=== PATIENT | female | born 1955 | race Hispanic/Latino ===

== ENCOUNTER → 2017-12-30 | Outpatient (CLI) | payer OTHER | END | disposition home or self-care (01) | LOC: RAH 10:45 | PROVIDERS: ATTEND Internal Medicine | DX: R10.13 Epigastric pain (principal); R11.2 Nausea with vomiting, unspecified; R14.0 Abdominal distension (gaseous) | CPT/HCPCS: 78264; A9541 ==

== ENCOUNTER → 2023-04-29 | Outpatient (CLI) | payer MEDICARE ==
[~2023-04-29] MED LIST: IOHEXOL-350 75 ML VIAL IV ONE
== END | disposition home or self-care (01) ==
LOC: RAH 11:10
PROVIDERS: ATTEND Nurse Practitioner Family
DX: K42.9 Umbilical hernia without obstruction or gangrene (principal); R19.09 Other intra-abdominal and pelvic swelling, mass and lump; M47.815 Spondylosis without myelopathy or radiculopathy, thoracolumbar region; Z90.49 Acquired absence of other specified parts of digestive tract; Z98.890 Other specified postprocedural states
CPT/HCPCS: 74178; Q9967

== ENCOUNTER 2023-11-15 07:45 | Day surgery (SDC) | payer MEDICARE ==
[2023-11-10 09:50] VITALS: BP 132/74; PULSE 58; RESP 18
[2023-11-10 09:52] LABS: BASOPHILS # (AUTO) 0.03 K/uL (0.00-0.20); BASOPHILS % (AUTO) 0.6 % (0.0-5.0); EOSINOPHILS # (AUTO) 0.08 K/uL (0.00-0.70); EOSINOPHILS % (AUTO) 1.6 % (0.0-8.0); HEMATOCRIT 34.6 % (36-48); IMMATURE GRANULOCYTE ABSOLUTE 0.02 K/uL (0-1); LYMPHOCYTES # (AUTO) 1.3 K/uL (1.0-4.8); LYMPHOCYTES % (AUTO) 27.2 % (21.0-51.0); MEAN CORPUSCULAR HEMOGLOBIN 29.8 pg (27.0-33.0); MEAN CORPUSCULAR HGB CONC 32.9 g/dL (32.0-36.0); MEAN CORPUSCULAR VOLUME 90.3 fL (79-99); MONOCYTES # (AUTO) 0.7 K/uL (0.1-1.0); MONOCYTES % (AUTO) 14.2 % (3.0-13.0); NEUTROPHILS # (AUTO) 2.8 K/uL (1.8-7.7); PLATELET COUNT (AUTO) 364 K/uL (130-400); RED BLOOD CELL COUNT(AUTO) 3.83 MIL/uL (4.00-5.50); RED CELL DISTRIBUTION WIDTH 15.9 % (11.0-15.5); WHITE BLOOD COUNT (AUTO) 4.9 K/uL (4.8-10.8)
[2023-11-10 09:58] LABS: POTASSIUM 4.5 mmol/L (3.5-5.1)
[2023-11-10 10:52] LABS: INR <= 0.93 (0.85-1.15); PROTHROMBIN TIME 10.3 SEC (9.6-11.6)
[2023-11-10 10:53] LABS: PARTIAL THROMBOPLASTIN TIME 26.5 SEC (26.3-35.5)
[~2023-11-15] VITALS: Ht 154.9 cm; Wt 48.8 kg
[2023-11-15] VITALS (17 sets, daily range): BP systolic 118–151; BP diastolic 56–85; PULSE 59–77; RESP 14–19
[~2023-11-15 07:45] MED LIST changes: +ATEN50TA PO; +ATOR10 PO; +BACI1CAP10 PO; +DILT120C12 PO; -IOHEXOL-350 75 ML VIAL IV ONE; +LISI20TA24 PO; +LORA0.5T83 PO; +MILK150C2 PO; +OMEP40CA21 PO; +SERT-439 PO
[2023-11-15] MEDS: CEFAZOLIN SODIUM 2 GM VIAL ONE (09:20)
[2023-11-15] MEDS: LACTATED RINGERS 1000ML 1,000 ML IV ONE (09:20)
[2023-11-15] MEDS ORDERED: BUPIVACAINE/PF 0.5% 30ML VIAL ONE (10:21)
[2023-11-15] MEDS ORDERED: BUPIVACAINE/PF 0.25% 30ML VIAL IJ ONE (10:26)
[2023-11-15] MEDS ORDERED: MIDAZOLAM HCL 1 MG/ML 2ML VIAL ONE (11:04)
[2023-11-15] MEDS ORDERED: FENTANYL CITRATE PF 50 MCG/1 ML 2ML VIAL ONE (11:04)
[2023-11-15] MEDS ORDERED: SUCCINYLCHOLINE CHLORIDE 20 MG/ML 10 ML VIAL ONE (11:04)
[2023-11-15] MEDS ORDERED: PROPOFOL 10 MG/ML 20ML VIAL IV ONE (11:04)
[2023-11-15] MEDS ORDERED: ROCURONIUM BROMIDE 10MG/1ML 5ML VL ONE (11:19)
[2023-11-15] MEDS ORDERED: GLYCOPYRROLATE 0.2 MG/ML 5 ML VIAL ONE (11:21)
[2023-11-15] MEDS ORDERED: EPHEDRINE SULFATE 50 MG/ML AMPULE ONE (11:25)
[2023-11-15] MEDS ORDERED: TRAM50TA4 PO (11:50)
[2023-11-15] MEDS ORDERED: METH-662 PO (11:50)
[2023-11-15] MEDS ORDERED: DOCU-116 PO (11:50)
[2023-11-15] MEDS ORDERED: GABA-529 PO (11:50)
[2023-11-15] MEDS: ONDANSETRON 4MG INJ ONE (12:54)
[2023-11-15] MEDS: MEPERIDINE-PF 25 MG/ML SYG ONE ×2 (12:54→12:55)
== END 2023-11-15 13:50 | disposition home or self-care (01) ==
LOC: DAH 07:45
PROVIDERS: ATTEND Surgery
DX: K43.0 Incisional hernia with obstruction, without gangrene (principal); I10 Essential (primary) hypertension; E78.5 Hyperlipidemia, unspecified; K21.9 Gastro-esophageal reflux disease without esophagitis; F41.9 Anxiety disorder, unspecified; F17.200 Nicotine dependence, unspecified, uncomplicated; Z79.01 Long term (current) use of anticoagulants; Z79.899 Other long term (current) drug therapy
CPT/HCPCS: 80048; 85025; 85610; 85730; 36415; 93005; 49614; 64488; A6260; A4663; J7030 ×2; J7120; J3010; J0330; J3490 ×3; J2250; J2704; J2405; J2175 ×2; J0690; A4649 ×2; A4930 ×2; A4215; A4223; A4222; A4221; A4600; G0168; J0665

== ENCOUNTER 2025-04-10 23:03 | Observation (INO) | payer MEDICARE ==
[~2025-04-10] VITALS: Ht 152.4 cm; Wt 51.3 kg
[~2025-04-10 23:03] MED LIST changes: +DOCU-116 PO; +GABA-529 PO; +METH-662 PO; +TRAM50TA4 PO
--- NOTE | 2025-04-10 23:19 | ERN ---
ED Note History of Present Illness Stated Complaint: C/O CP Chief Complaint: Chest Pain Time Seen by MD: 23:15 Dictation: This is a 69-year-old female who presented to the emergency room with complaints of epigastric pain and chest pain. Which started 30 minutes prior to the presentation. Patient states that she always has a heartburn and she usually takes omeprazole in the morning. After she had a hamburger Norma and a piece of toast she began experiencing heartburn initially pain in the xiphoid area eventually all throughout the mid chest pain to the throat. She also stated that it radiated to her left arm and she started panicking and woke her daughter up. No diaphoresis no presyncope or syncope. No palpitations. Patient's daughter also reports that patient has severe anxiety. Temperature 98.3 pulse 77 respirations 20 blood pressure 166/74 with a pulse oximetry of 99% on room air Her chronic medical problems include history of hypertension, tachycardia. She has a active tobacco smoker Allergies: Coded Allergies: No Known Drug Allergies (Unverified Allergy, Unknown, 11/10/23) Home Meds Active Scripts Methocarbamol (Robaxin) 750 Mg Tab, 500 MG PO TID, #12 TAB 0 Refills Prov:MAL TINSLEY MD 11/15/23 Gabapentin (Gabapentin) 100 Mg Capsule, 100 MG PO TID, #15 CAP 0 Refills Prov:MAL TINSLEY MD 11/15/23 Docusate Sodium (Colace) 100 Mg Capsule, 100 MG PO BID, #30 CAP 0 Refills Prov:MAL TINSLEY MD 11/15/23 Tramadol Hcl (Tramadol HCl) 50 Mg Tablet, 50 MG PO Q6HPRN PRN for PAIN, #28 TAB 0 Refills Prov:MAL TINSLEY MD 11/15/23 Reported Medications Bacillus Coagulans/Inulin (Probiotic Formula Capsule) 1 Billion Cell-250 Mg Capsule, 1 EACH PO DAILY, CAP 11/10/23 Lorazepam (Ativan) 0.5 Mg Tablet, 0.5 MG PO AD PRN for ANXIETY, TAB 11/10/23 Atenolol (Atenolol) 50 Mg Tablet, 50 MG PO DAILY, TAB 11/10/23 Omeprazole (Omeprazole) 40 Mg Capsule.dr, 40 MG PO DAILY, CAP 11/10/23 Atorvastatin Calcium (LIPITOR) 20 Mg Tab, 20 MG PO HS, TAB 11/10/23 Sertraline HCl (Sertraline HCl) 50 Mg Tablet, 50 MG PO BID, TAB 11/10/23 Diltiazem HCl (Diltiazem ER) 120 Mg Cap.er.12h, 120 MG PO BID, CAPSULE. 11/10/23 Lisinopril (Lisinopril) 20 Mg Tablet, 20 MG PO BID, TAB 11/10/23 Milk Thistle (Milk Thistle) 150 Mg Capsule, 150 MG PO DAILY, CAP 11/10/23 Past Medical History Past Medical History: Anxiety, GERD, Hypertension, Other Additional Past Medical Hx: HX OF TACHYCARDIA Surgical History: Unknown Family History: Negative Social History: Smokers History: Not Applicable RN Note Reviewed/Agreed w/PFSH: Yes Review of System Dictation Constitutional: Negative for fever,chills, and weight loss Eyes: Negative for injury, pain,redness, and discharge ENT: Negative for injury,pain or swelling Cardiovascular: Positive for chest pain, palpitations, and edema Respiratory: Negative for shortness of breath, cough, and wheezing, Abdomen/GI: Negative for abdominal pain, nausea, vomiting, diarrhea, and constipation positive for heartburn and indigestion Back: Negative for injury and pain : Negative for injury, bleeding and discharge MS/Extremity: Negative for injury and deformity Skin: Negative for rash, and discoloration Neuro: Negative for headache, weakness, numbness, tingling, and seizure Psych: Negative for suicide ideation, homicidal ideation, and hallucinations Initial Vital Sign VS Vital Signs Date Time Temp Pulse Resp B/P (MAP) Pulse Ox O2 Delivery O2 Flow Rate FiO2 04/10/25 23:06 98.2 77 20 166/74 99 Room Air 04/10/25 23:30 0 21 Physical Exam Dictation General: awake, alert, NAD chronically ill-appearing emaciated female Head/Face: Normocephalic, atraumatic Eyes: PERRL, EOMI, vision at baseline ENT: oral cavity clear, TMs clear, no signs of infection Neck: Trachea midline, supple, no nuchal rigidity Cardiovascular: RRR, normal S1/S2, No MRGs, no JVD tenderness in the xiphoid area Respiratory: CTAB, no respiratory distress, No rales or wheezes Abdomen: Soft, non-tender, non-distended, normal bowel sounds, no guarding or rebound. Skin: Warm, dry, normal turgor, no rash MS/Extremity: Pulses equal, no cyanosis, neurovascular intact, FROM Neuro: COAx4, GCS 15, strength 5/5, CN 2-12 intact, normal cerebellar exam, normal gait, Psych: Normal behavior, mood, and affect normal Extremities-trace edema without any palpable cords, Homans sign is negative Results (Laboratory/Radiology) Laboratory/Radiology Laboratory Tests Test 04/10/25 23:17 White Blood Count 7.8 K/uL (4.8-10.8) Red Blood Count 3.52 MIL/uL (4.00-5.50) L Hemoglobin 10.2 g/dL (12.0-16.0) L Hematocrit 31.6 % (36-48) L Mean Corpuscular Volume 89.8 fL (79-99) Mean Corpuscular Hemoglobin 29.0 pg (27.0-33.0) Mean Corpuscular Hemoglobin Concent 32.3 g/dL (32.0-36.0) Red Cell Distribution Width 16.2 % (11.0-15.5) H Platelet Count 313 K/uL (130-400) Mean Platelet Volume 9.1 fL (7.5-10.5) Immature Granulocyte % (Auto) 0.3 % (0-1) Neutrophils (%) (Auto) 58.1 % (40.0-77.0) Lymphocytes (%) (Auto) 28.1 % (21.0-51.0) Monocytes (%) (Auto) 10.9 % (3.0-13.0) Eosinophils (%) (Auto) 2.2 % (0.0-8.0) Basophils (%) (Auto) 0.4 % (0.0-5.0) Neutrophils # (Auto) 4.6 K/uL (1.8-7.7) Lymphocytes # (Auto) 2.2 K/uL (1.0-4.8) Monocytes # (Auto) 0.9 K/uL (0.1-1.0) Eosinophils # (Auto) 0.17 K/uL (0.00-0.70) Basophils # (Auto) 0.03 K/uL (0.00-0.20) Absolute Immature Granulocyte (auto 0.02 K/uL (0-1) Nucleated Red Blood Cells 0.0 % (0.0-0.19) Sodium Level 134 mmol/L (136-145) L Potassium Level 3.6 mmol/L (3.5-5.1) Chloride Level 97 mmol/L (101-111) L Carbon Dioxide Level 26 mmol/L (21-32) Blood Urea Nitrogen 12 mg/dL (7-18) Creatinine 1.3 mg/dL (0.5-1.0) H Glomerular Filtration Rate Calc 44 mL/min (>90) Random Glucose 115 mg/dL (70-105) H Total Calcium 8.5 mg/dL (8.5-10.1) Total Creatine Kinase 77 U/L (21-232) # Troponin I High Sensitivity 10.0 ng/L (4-50) Labs Reviewed?: Yes EKG Comment: Twelve lead EKG done on 04/10/2025 at 11:05 p.m. showed a heart rate of 72, DC interval 124, QRS duration 86, QT/QTC 387/424 Impression normal sinus rhythm with nonspecific STT wave changes no acute ST-T elevations or deep ST depressions noted. Probable left atrial enlargement. EKG rhythm strip shows a normal sinus rhythm with no acute STT wave changes. Interpreted by ER MD Dr. Smith ED Course ED Course Orders Procedure Category Date Status Time Vital Signs Per CPOE 04/10/25 Transmitted Routine 23:11 Chest 1vw RAD 04/10/25 Resulted 23:11 12 Lead Ekg Tracing- EKG 04/10/25 Logged Technical 23:11 Oxygen By Nc/Pulse Ox CPOE 04/10/25 Transmitted 23:11 Maintain Iv CPOE 04/10/25 Transmitted 23:11 Iv Insertion CPOE 04/10/25 Transmitted 23:11 Cardiac Monitoring CPOE 04/10/25 Transmitted 23:11 Pulse Oximetry With CPOE 04/10/25 Transmitted Vs And Prn 23:11 Cbc With Differential LAB 04/10/25 Complete 23:11 Activity: Br W/Brp CPOE 04/10/25 Transmitted With Assist 23:11 Urinalysis Profile LAB 04/10/25 In Process 23:11 Basic Metabolic Panel LAB 04/10/25 Complete 23:11 Cardiac Panel LAB 04/10/25 Complete 23:17 Ondansetron 4mg Inj PHA 04/10/25 Complete (Zofran 4mg Inj) 23:30 Morphine 4mg Syg PHA 04/10/25 Complete (Morphine 4mg Syg) 23:45 Ketorolac PHA 04/11/25 Complete Tromethamine 15mg/Ml 01:00 Nitroglycerin 0.4mg PHA 04/11/25 In Process Sl Tab (Nitrostat) 01:00 Lidocaine Hcl 2% PHA 04/11/25 Complete Viscous (Lidocaine Hcl 01:00 Mag/Alum/Simeth 30ml PHA 04/11/25 Complete (Maalox Plus 30ml) 01:00 Famotidine 20mg Tab PHA 04/11/25 Complete (Pepcid 20mg Tab) 01:00 Dicyclomine Hcl PHA 04/11/25 Complete (Bentyl 10mg/5ml 01:00 Edm Admit Bridge Order ADM 04/11/25 Verified 02:27 Current Medications Medications (Trade) Dose Ordered Sig/Aden Route PRN Reason Start Time Stop Time Status Last Admin Dose Admin Al Hydroxide/Mg Hydroxide (MAALox PLUS 30ML) 30 ml ONCE ONCE PO 04/11/25 01:00 04/11/25 01:01 DC 04/11/25 01:17 Dicyclomine HCl (Bentyl 10mg/5ml Syrup) 10 mg ONCE ONCE PO 04/11/25 01:00 04/11/25 01:01 DC 04/11/25 01:17 Famotidine (Pepcid 20mg Tab) 20 mg ONCE ONCE PO 04/11/25 01:00 04/11/25 01:01 DC 04/11/25 01:16 Ketorolac Tromethamine (toRADol) 15 mg ONCE ONCE IV 04/11/25 01:00 04/11/25 01:01 DC 04/11/25 00:56 Lidocaine HCl (Lidocaine HCl 2% Viscous) 10 ml ONCE ONCE PO 04/11/25 01:00 04/11/25 01:01 DC 04/11/25 01:17 Morphine Sulfate (morPHINE 4MG SYG) 2 mg ONCE ONCE IVP 04/10/25 23:45 04/10/25 23:46 DC 04/10/25 23:42 Nitroglycerin (Nitrostat) 0.4 mg AD PRN SL CHEST PAIN 04/11/25 01:00 05/11/25 00:59 Ondansetron HCl (zoFRAN 4MG INJ) 4 mg ONCE ONCE IVP 04/10/25 23:30 04/10/25 23:33 DC 04/10/25 23:42 Vital Signs Date Time Temp Pulse Resp B/P (MAP) Pulse Ox O2 Delivery O2 Flow Rate FiO2 04/11/25 00:20 72 18 115/48 100 Room Air* 0 21 04/10/25 23:30 97.9 74 22 153/70 100 Room Air* 0 21 04/10/25 23:06 98.2 77 20 166/74 99 Room Air We will perform diagnostic labs, imaging and administer medications according to the patient's complaint. Once the results are available, will review and pe rsonally interpreted the labs to rule out any acute life-threatening emergency the trach require immediate intervention and treatment. I will then re-evaluate the patient after treatment and diagnostic exams have return to determine whether the patient requires any further testing, can safely be discharged home or need further admission to hospital for additional treatment and evaluation. 2:30 a.m. patient accepted by Denis Maldonado mid-level provider for [facility] hospitalist group for admission and further management of the chest pain and unstable angina HEART Score Response (Comments) Value History: Low suspicion (0) 0 EKG: Normal 0 Age: > 65yrs (+2) 2 Risk Factors: 1-2 risk factors (+1) 1 Initial Troponin: Normal limit (0) 0 HEART Score Risk: Low Risk for MACE (1-3) Total 3 Medical Decision Making MDM Differential diagnosis: Esophagitis, gastroesophageal reflux disease, hiatal hernia, gastritis, pericarditis, costochondritis, pleurisy, angina This is a 69-year-old female who presented to the emergency room with complaints of epigastric pain and chest pain. Which started 30 minutes prior to the presentation. Patient states that she always has a heartburn and she usually takes omeprazole in the morning. After she had a hamburger Norma and a piece of toast she began experiencing heartburn initially pain in the xiphoid area eventually all throughout the mid chest pain to the throat. She also stated that it radiated to her left arm and she started panicking and woke her daughter up. No diaphoresis no presyncope or syncope. No palpitations. Patient's daughter also reports that patient has severe anxiety. Temperature 98.3 pulse 77 respirations 20 blood pressure 166/74 with a pulse oximetry of 99% on room air Her chronic medical problems include history of hypertension, tachycardia. She has a active tobacco smoker 12:00 a.m. labs reviewed CBC showed a white count of 7.8 hemoglobin 10.2 shane telets 313. BNP 7 is significant for a sodium of 134 chloride 97 BUN and creatinine are 12 and 1.3. Troponins 10 Chest x-ray hyperinflation with COPD changes. I updated the patient on the available workup so far and lab results and discussed the possibilities. We will give additional pain medicine and GI cocktail and reassess the response 1:00 a.m. less tearful than when she came in. I explained to the patient and her daughter that this maybe inflammation near the xiphoid process however hiatal hernia or gastroesophageal reflux disease his definitely a possibility. The fact that patient has been taking omeprazole daily makes me wonder if this is presentation of angina with her history of smoking hypertension and being postmenopausal woman. I shared my concerns with the patient and daughter and recommended that she should be admitted for chest pain workup and they are agreeable Rationale: Tests considered and ordered secondary to shared decision making include: labs, ECG and radiology Previous outside records reviewed: Old ER visits. Risk of complication and/or morbidity or mortality of patient management: None Medications-Per medication reconciliation Need for hospitalization: Patient does meet criteria for hospitalization. Need for emergency major/minor surgery: No There are no social concerns with this patient. Prescription drug management Prescriptions will include symptomatic care Patient's prior external medical records from other ER visits were reviewed by me as indicated. Prior testing and results from previous visits were reviewed. Prior tests were taken into account with medical decision making and resource utilization, independent historian/historians were used to obtain complete medical history. I independently interpreted the test that were performed, results were reviewed by me and considered findings on radiology if ordered. Medical management and examination interpretation discussions were had by me with other qualified healthcare professionals as indicated for the patient's care. Problem List Problem List: (1) Unstable angina (2) Gastroesophageal reflux disease (3) Hypertension (4) Tobacco abuse DX & DISP Disposition: Inpatient Decision to Admit Time: 01:34 Departure Impression: Primary Impression: Unstable angina Additional Impressions: Gastroesophageal reflux disease, Hypertension, Tobacco abuse Condition: Stable Additional Instructions: Patient was informed of all the diagnostic labs and procedures conducted in the emergency room today and demonstrated understanding of the results. I personally reviewed and interpreted all the diagnostic exams performed in the ER today. The patient will be admitted to the hospital for further treatment and evaluation. Disposition-admit to facility Condition-stable/guarded Course-uncertain at this time Pain status-decreased Assessment-exam unchanged Admission Certification- I certify that the patients status is appropriate and is based on my best clinical judgment and the patient's condition as documented in the medical records Referrals: JONATHAN TAVERAS (PCP) BRITTNY SMITH MD Apr 10, 2025 23:19
[2025-04-10 23:28] LABS: IMMATURE GRANULOCYTE ABSOLUTE 0.02 K/uL (0-1); NUCLEATED RED BLOOD CELLS 0.0 % (0.0-0.19); PLATELET COUNT (AUTO) 313 K/uL (130-400); RED BLOOD CELL COUNT(AUTO) 3.52 MIL/uL (4.00-5.50); RED CELL DISTRIBUTION WIDTH 16.2 % (11.0-15.5); WHITE BLOOD COUNT (AUTO) 7.8 K/uL (4.8-10.8)
[2025-04-10 23:42] LABS: CREATININE 1.3 mg/dL (0.5-1.0); GLOMERULAR FILTR. RATE CALC 44.0 mL/min (>90); GLUCOSE,RANDOM 115.0 mg/dL (70-105); SODIUM SERUM 134.0 mmol/L (136-145); UREA NITROGEN, BLOOD 12.0 mg/dL (7-18)
[2025-04-10 23:50] LABS: CREATINE KINASE, TOTAL 77.0 U/L (21-232)
[2025-04-11] VITALS (10 sets, daily range): BP systolic 96–142; BP diastolic 49–63; PULSE 59–93; RESP 16–20; TEMP 97.5–98.4; O2SAT 97–98
--- NOTE | 2025-04-11 00:43 | HMCIMG ---
EXAM: CR Chest, 1 view CLINICAL HISTORY: Chest pain. COMPARISON: None provided. FINDINGS: The lungs show no infiltrates or other acute findings. No pleural effusion or pneumothorax. The cardiomediastinal silhouette is within normal limits. No acute osseous abnormality. IMPRESSION: No acute cardiopulmonary process is evident. /[place]
[2025-04-11] MEDS ORDERED: NITROGLYCERIN 0.4 MG SL TAB SL PRN ×2 (01:00→03:30)
[2025-04-11] MEDS: FAMOTIDINE 20MG TAB PO ONE (01:16)
[2025-04-11] MEDS: LIDOCAINE HCL 2% VISCOUS 15 ML UDCUP PO ONE (01:17)
[2025-04-11] MEDS: MAG/ALUM/SIMETH 30 ML UDCUP PO ONE (01:17)
[2025-04-11] MEDS: DICYCLOMINE HCL 10 MG/5 ML ML PO ONE (01:17)
--- NOTE | 2025-04-11 02:36 | HP ---
History of Present Illness Reason for Visit: chest pain History of Present Illness Ms. Pressley is a 69-year-old female that was seen and examined today on 04/11/2025. Patient is a good historian of personal health. Patient's daughter, Sandra calzada is at bedside. Patient reports that she came to the emergency department with a chief complaint of abdominal pain. Onset was 04/10/2025 at 10:30 p.m.. Location is epigastric. Duration is on and off. Character is described as burning and pressure that traveled from the epigastric region to bilateral chest. Symptoms are aggravated with eating. Symptoms are not alleviated with the omeprazole. Patient reports associated chest pain. Today in the emergency department CBC unremarkable, creatinine 1.3, urinalysis has been collected or sent to lab, chest x-ray is unremarkable, 1st troponin is negative. Emergency room physician recommended patient be admitted with a diagnosis of chest pain. Past Medical History Patient History: Alzheimer's disease FATHER, , Age: 93 Carcinomas FATHER, , Age: 93 Cardiovascular disease MOTHER Diabetes mellitus MOTHER Hypertension MOTHER FATHER, , Age: 93 ADDITIONAL PAST MEDICAL HISTORY: [Hypertension, tachycardia, anxiety, GERD] SOCIAL HISTORY: [Patient smokes five cigarettes daily. Patient denies alcohol use. Patient smokes marijuana daily. Patient denies any other drug use. Patient is typically independent of all her ADLs. Patient denies difficulty paying her bills.] SURGICAL HISTORY: [Tonsillectomy, hernia repair x4, cholecystectomy] Review of Systems General: No Fever, No Chills, No Night Sweats, No Fatigue, No Malaise, No Appetite, No Other HEENT: No Head Aches, No Visual Changes, No Eye Pain, No Ear Pain, No Dysphasia, No Sinus Congestion, No Post Nasal Drip, No Sore Throat, No Other Pulmonary: No Dyspnea, No Cough, No Pleuritic Chest Pain, No Other Cardiovascular: Chest Pain; No: Palpitations, Orthopnea, Paroxysmal Noc. Dyspnea, Edema, Lt Headedness, Other Gastrointestinal: Abdominal Pain; No: Nausea, Vomiting, Diarrhea, Constipation, Melena, Hematochezia, Other Genitourinary: No Dysuria, No Frequency, No Incontinence, No Hematuria, No Retention, No Other Musculoskeletal: No: other, neck pain, shoulder pain, arm pain, back pain, hand pain, leg pain, foot pain Skin: No Urticaria, No Rash, No Other Neurological: No: Weakness, Numbness, Incoordination, Change in speech, Confusion, Seizures, Other Allergies: Coded Allergies: No Known Drug Allergies (Unverified Allergy, Unknown, 11/10/23) Scheduled Atenolol (Atenolol), 50 MG PO DAILY, (Reported) Atorvastatin Calcium (Lipitor), 20 MG PO HS, (Reported) Bacillus Coagulans/Inulin (Probiotic Formula Capsule), 1 EACH PO DAILY, (Reported) Diltiazem HCl (Diltiazem ER), 120 MG PO BID, (Reported) Docusate Sodium (Colace), 100 MG PO BID Gabapentin (Gabapentin), 100 MG PO TID Lisinopril (Lisinopril), 20 MG PO BID, (Reported) Methocarbamol (Robaxin), 500 MG PO TID Milk Thistle (Milk Thistle), 150 MG PO DAILY, (Reported) Omeprazole (Omeprazole), 40 MG PO DAILY, (Reported) Sertraline HCl (Sertraline HCl), 50 MG PO BID, (Reported) Scheduled PRN Lorazepam (Ativan), 0.5 MG PO AD PRN for ANXIETY, (Reported) Tramadol Hcl (Tramadol HCl), 50 MG PO Q6HPRN PRN for PAIN Exam Vital Signs Vital Signs Date Time Temp Pulse Resp B/P (MAP) Pulse Ox O2 Delivery O2 Flow Rate FiO2 04/11/25 00:20 72 18 115/48 100 Room Air* 0 21 04/10/25 23:30 97.9 General Appearance: Alert, Oriented X3, Cooperative HEENT: Atraumatic, PERRLA, EOMI, Mucous membr. moist/pink Respiratory: Clear to auscultation, Normal air movement, NL respiratory effort Cardiovascular: Regular rate, Regular rhythm, Normal S1, Normal S2 Abdominal: Normal bowel sounds, Soft, No tenderness Extremities: No clubbing, No cyanosis, No edema Skin: No significant lesion Neuro: Strength at 5/5 X4 ext, Sensation intact, Cranial nerves 3-12 NL Psych/Mental Status: Mental status NL, Mood NL, Thoughts/Content NL Assessment/Plan ASSESSMENT: [ Acute kidney injury, POA Chest pain, POA Hypertension GERD Anxiety] PLAN: [ Admit patient to medical floor as inpatient status. Place patient on telemetry monitoring Lactated Ringer's at 75 mL/HR Calculate FENA Check urine sodium, creatinine, osmolality Avoid nephrotoxic agents when possible Renally dose all medications when possible Consider consulting Nephrology service if any worsening renal function or evidence of ATN. Monitor patient's labs. Weight patient daily. Monitor intake and output. Administer aspirin 162 mg by mouth times 1 dose Continue aspirin 81 mg by mouth once daily Nitroglycerin sublingual 0.4 mg as needed for chest pain every 5 minutes, max 3 doses, hold for systolic blood pressure less than 100 mmHg. Trend troponin every 6 hours x 3 sets Supplemental oxygen to maintain O2 saturation greater than 92% Consult cardiology if any elevation in troponin or troponin uptrending, or if patient deemed to need stress test by daytime rouding service. Consider resuming home medications once they have been reconciled. At time of admission home medications has been reconciled. For now: Hydralazine 10 mg IV every 4 hours for systolic blood pressure greater than 160 mmHg GI prophylaxis, Protonix DVT prophylaxis, heparin ADVANCED CARE PLANNING 1. Which of the following were discussed? Hospice Care - Yes Therapeutic options - yes Advance Directives - Yes - patient states she does not have any advance directives in place at this time, however her daughter can make decisions for him if he becomes unable, Sandra calzada Other discussions - patient wishes to remain a full code at this time 2. Discussed with who? Patient 3. Voluntary nature of this service was explained to the patient? Yes 4. Amount of time spent - ___16 minutes____ 5. Reviewed by Physician? (if this service was performed by NPP) Yes This document was generated in part using voice recognition software, occasional wrong word or sound alike substitutions may have occurred due to the inherent limitations of voice recognition software. Read the chart carefully and recognize using context, where the substitutions have occurred. Although every effort was made to edit the content, block captain and typing errors may occur ATTESTATION BY PHYSICIAN I have seen and examined the patient. I reviewed the documentation, medical decision making, and treatment plan as noted by the mid-level provider above. I agree with the findings and plan of care.] [facility] Apr 11, 2025 02:36
[2025-04-11] MEDS ORDERED: LACTULOSE 20 GM/30 ML UDCUP PO PRN (03:30)
[2025-04-11] MEDS: ASPIRIN 81MG CHEW TAB PO ONE (03:40)
[2025-04-11] MEDS: LACTATED RINGERS 1000ML 1,000 ML IV SCH (03:40)
[2025-04-11 03:48] LABS: APPEARANCE,URINE CLEAR (CLEAR); GLUCOSE, URINE (UA) NEGATIVE (NEGATIVE); LEUKOCYTE ESTERASE ,URINE NEGATIVE Leu/uL (NEGATIVE); NITRATE,URINE NEGATIVE (NEGATIVE); OCCULT BLOOD,URINE NEGATIVE (NEGATIVE)
[2025-04-11 04:32] LABS: ADD UA MICROSCOPIC NO
--- NOTE | 2025-04-11 04:34 | EKG ---
[facility] Test Date: 2025-04-10 Test Time: 23:05:44 Pat Name: MARBELLA LAKE Department: [facility]IP Room: 430 Gender: F Clinical Quality Assurance Specialist: [id number] : 1955 Requested By: BRITTNY PETERSON Order Number: [id number] Reading MD: Jose Tsai Measurements Intervals [place] Rate: 72 P: 58 IL: 124 QRS: 46 QRSD: 86 T: 49 QT: 387 QTc: 424 Interpretive Statements Sinus rhythm Probable left atrial enlargement Compared to ECG 11/10/2023 09:36:22 No significant changes Electronically Signed On 04-11-2025 07:07:48 CDT by Jose Tsai Please click the below link to view image of tracing.
[2025-04-11 05:43] LABS: IMMATURE GRANULOCYTE ABSOLUTE 0.02 K/uL (0-1); NUCLEATED RED BLOOD CELLS 0.0 % (0.0-0.19); PLATELET COUNT (AUTO) 235 K/uL (130-400); RED BLOOD CELL COUNT(AUTO) 2.69 MIL/uL (4.00-5.50); RED CELL DISTRIBUTION WIDTH 16.1 % (11.0-15.5); WHITE BLOOD COUNT (AUTO) 6.7 K/uL (4.8-10.8)
[2025-04-11 05:55] LABS: CREATININE 1.0 mg/dL (0.5-1.0); GLOMERULAR FILTR. RATE CALC 61.0 mL/min (>90); GLUCOSE,RANDOM 99.0 mg/dL (70-105); PHOSPHORUS 3.0 mg/dL (2.5-4.9); SODIUM SERUM 139.0 mmol/L (136-145); UREA NITROGEN, BLOOD 11.0 mg/dL (7-18)
[2025-04-11] MEDS: ASPIRIN 81 MG EC TAB PO SCH (08:08)
[2025-04-11 08:41] LABS: ASPARTATE AMINOTRANSFERASE 44.0 U/L (10-37); TOTAL PROTEIN, SERUM 5.7 g/dL (6.0-8.3)
[2025-04-11] MEDS ORDERED: FAMOTIDINE 20MG TAB PO SCH (09:00)
--- NOTE | 2025-04-11 09:36 | NUR ---
DCP:HOME Pt currently lives at home with her Derrick Pressley [phone]. Pt does not have any DME, home health, or provider services. Pt states that she is able to complete ADLs independently. PCP is Dr. Eran De La Paz and uses [facility] for any RX needs. At [place] pt will want to go home and family can assist with transportation. Addendum: 04/11/25 at 0938 by LAILA KIMBLE SS Amended: Links added.
[2025-04-11] MEDS ORDERED: FOLI0.8T22 PO (10:12)
[2025-04-11] MEDS ORDERED: BUPR-49 PO (10:12)
[2025-04-11] MEDS ORDERED: DILT120T PO (10:12)
[2025-04-11] MEDS ORDERED: CLON0.1T PO (10:12)
[2025-04-11] MEDS ORDERED: LORA2DIS5 PO (10:12)
[2025-04-11] MEDS ORDERED: ATEN50TA PO (10:12)
[2025-04-11] MEDS ORDERED: SERT-440 PO (10:12)
--- NOTE | 2025-04-11 13:04 | PN ---
[facility] PROGRESS NOTE Date of Service: Apr 11, 2025 Time of Service: 12:28 History of Present Illness Ms. Pressley is a 69-year-old female that was seen and examined today on 04/11/2025. Patient is a good historian of personal health. Patient's daughter, Sandra calzada is at bedside. Patient reports that she came to the emergency department with a chief complaint of abdominal pain. Onset was 04/10/2025 at 10:30 p.m.. Location is epigastric. Duration is on and off. Character is described as burning and pressure that traveled from the epigastric region to bilateral chest. Symptoms are aggravated with eating. Symptoms are not alleviated with the omeprazole. Patient reports associated chest pain. Today in the emergency department CBC unremarkable, creatinine 1.3, urinalysis has been collected or sent to lab, chest x-ray is unremarkable, 1st troponin is negative. Emergency room physician recommended patient be admitted with a diagnosis of chest pain. SUBJECTIVE: 04/11/25: Patient was seen and examined in room 430. Patient was asleep when we entered the room. After waking her up patient reports burning pain in her epigastrium, which increases with food. She reports having multiple surgeries for her hernia and long history of use of PPI's for her GERD. The burning sensation has been bothering her for a long time. Patient denies any chest pain, shortness of breath, fever and chills. Patient denies diaphoresis. Troponin trends are 10>9. REVIEW OF SYSTEMS CONSTITUTIONAL: Denies fevers, chills, or night sweats. No unintentional weight loss reported. NEUROLOGICAL: Denies headache, amaurosis fugax, motor weakness, sensory deficit, vertigo/spinning sensation, gait abnormalities, or tremors. ENT: No hearing loss, otalgia, otorrhea, rhinitis, rhinorrhea, hoarseness, or sore throat. CARDIOVASCULAR: Denies any exertional angina, dyspnea on exertion, orthopnea, paroxysmal nocturnal dyspnea, palpitations, life-threatening arrhythmias, claudication. PULMONARY: Denies any shortness of breath, cough, phlegm/sputum, hemoptysis, pleuritic chest pain. SLEEP: Denies morning headaches, daytime somnolence or napping. Denies difficulty falling asleep, staying asleep, waking from sleep. Denies knowledge of snoring. GASTROINTESTINAL: Denies any type of dysphagia to either liquids or solids. Abdominal pain in epigastrium. Denies nausea, vomiting, pyrosis, early satiety, diarrhea, constipation, or changes in stool consistency or caliber. Denies coffee-ground emesis, hematemesis, hematochezia, or melanotic stools. GENITOURINARY: Denies frequency, urgency, nocturia, hematuria or incontinence (Storage/Irritative symptoms.) Low urinary stream, straining to void, urinary intermittency or hesitancy, splitting of the voiding stream, terminal dribbling. ENDOCRINOLOGIC: Denies polyuria, polydipsia, polyphagia or heat/cold intolerances. HEMATOLOGIC: Denies thrombophilia/previous clots, or coagulopathy/bleeding disorders. ONCOLOGIC: Denies personal history of malignancy. DERMATOLOGIC: Denies rashes or pruritus. PSYCHIATRIC: Denies any suicidal or homicidal ideation. Denies hallucinations. PHYSICAL EXAM GENERAL APPEARANCE: The patient is awake, alert, and oriented, in no acute cardiopulmonary distress. NEUROLOGICAL: Cranial nerves II-XII grossly intact. Motor is 5/5 in bilateral upper and lower extremities proximal to distal. No sensory deficits. HEENT: Face is symmetric. Pupils are equal and reactive. Extraocular movements are intact. NECK: Supple. No JVD. No thyromegaly. No submental, submandibular, pre- /postauricular, occipital or supraclavicular lymphadenopathy. CHEST: Normal chest expansion. No Telemetry. LUNGS: Absence of any rales, rhonchi or any wheezing. CARDIOVASCULAR: Regular. S1 and S2 normal. No appreciable rubs, murmurs or gallops. ABDOMEN: Tenderness in the epigastrium. There is no rebound, voluntary guarding, or rigidity. : Deferred. No Mg. EXTREMITIES: Non-edematous and not cyanotic. No clubbing. Good capillary refill. SKIN: No skin breakdown. Vital Signs (last 8hr) Date Time Temp Pulse Resp B/P (MAP) Pulse Ox O2 Delivery O2 Flow Rate FiO2 04/11/25 11:56 98.1 59 18 121/49 99 Room Air 04/11/25 11:38 97 Room Air* 0 21 04/11/25 07:58 97.9 66 18 116/58 100 Room Air 04/11/25 05:30 97 Room Air* 0 21 LABS: Laboratory: Test 04/11/25 11:05 04/11/25 05:15 04/11/25 02:41 04/10/25 23:17 Range/Units Troponin I High Sensitivity 10 4-50 ng/L White Blood Count 6.7 4.8-10.8 K/uL Red Blood Count 2.69 #L 4.00-5.50 MIL/uL Hemoglobin 7.9 #L 12.0-16.0 g/dL Hematocrit 23.5 #L 36-48 % Mean Corpuscular Volume 87.4 79-99 fL Mean Corpuscular Hemoglobin 29.4 27.0-33.0 pg Mean Corpuscular Hemoglobin Concent 33.6 32.0-36.0 g/dL Red Cell Distribution Width 16.1 H 11.0-15.5 % Platelet Count 235 130-400 K/uL Mean Platelet Volume 9.4 7.5-10.5 fL Immature Granulocyte % (Auto) 0.3 0-1 % Neutrophils (%) (Auto) 71.1 40.0-77.0 % Lymphocytes (%) (Auto) 18.6 L 21.0-51.0 % Monocytes (%) (Auto) 9.2 3.0-13.0 % Eosinophils (%) (Auto) 0.6 0.0-8.0 % Basophils (%) (Auto) 0.2 0.0-5.0 % Neutrophils # (Auto) 4.7 1.8-7.7 K/uL Lymphocytes # (Auto) 1.2 1.0-4.8 K/uL Monocytes # (Auto) 0.6 0.1-1.0 K/uL Eosinophils # (Auto) 0.04 0.00-0.70 K/uL Basophils # (Auto) 0.01 0.00-0.20 K/uL Absolute Immature Granulocyte (auto 0.02 0-1 K/uL Nucleated Red Blood Cells 0.0 0.0-0.19 % Sodium Level 139 136-145 mmol/L Potassium Level 4.0 3.5-5.1 mmol/L Chloride Level 108 101-111 mmol/L Carbon Dioxide Level 24 21-32 mmol/L Blood Urea Nitrogen 11 7-18 mg/dL Creatinine 1.0 0.5-1.0 mg/dL Glomerular Filtration Rate Calc 61 >90 mL/min Random Glucose 99 70-105 mg/dL Total Calcium 7.3 L 8.5-10.1 mg/dL Phosphorus Level 3.0 2.5-4.9 mg/dL Magnesium Level 1.90 1.80-2.40 mg/dL Total Bilirubin 0.2 0.2-1.0 mg/dL Direct Bilirubin 0.1 0.0-0.3 mg/dL Aspartate Amino Transf (AST/SGOT) 44 H 10-37 U/L Alanine Aminotransferase (ALT/SGPT) 27 12-78 U/L Alkaline Phosphatase 105 50-136 U/L Total Protein 5.7 L 6.0-8.3 g/dL Albumin 2.6 L 3.5-5.0 g/dL Lipase 70 16-77 U/L Urine Color COLORLESS YELLOW Urine Appearance CLEAR CLEAR Urine pH 5.5 5.0-8.0 Urine Specific [place] 1.004 1.001-1.031 Urine Protein NEGATIVE NEGATIVE mg/dL Urine Glucose (UA) NEGATIVE NEGATIVE mg/dL Urine Ketones NEGATIVE NEGATIVE mg/dL Urine Occult Blood NEGATIVE NEGATIVE Urine Nitrate NEGATIVE NEGATIVE Urine Bilirubin NEGATIVE NEGATIVE mg/dL Urine Urobilinogen 0.2 0.2-1.0 mg/dL Urine Leukocyte Esterase NEGATIVE NEGATIVE Reyes/uL Total Creatine Kinase 77 # 21-232 U/L Current Medications Medications (Trade) Dose Ordered Sig/Aden Route PRN Reason Start Time Stop Time Status Last Admin Dose Admin Acetaminophen (TYLenol 325MG TAB) 650 mg Q6H PRN PO TEMPERATURE GREATER THAN 101.5 04/11/25 03:30 05/11/25 03:29 Aspirin (Aspirin 81mg Ec Tab) 81 mg DAILY PO 04/11/25 09:00 05/11/25 08:59 Famotidine (Pepcid 20mg Tab) 20 mg DAILY PO 04/11/25 09:00 04/11/25 03:16 DC Heparin Sodium (Porcine) (HEParin 5,000 UNIT VIAL) 5,000 unit BID SQ 04/11/25 09:00 05/11/25 08:59 Hydralazine HCl (APRESOLine 20MG INJ) 10 mg Q6H PRN IV For:SBP above 160;DBP above 90 04/11/25 03:30 05/11/25 03:29 Lactated Ringer's 1,000 ml @ 75 mls/hr [id number] IV 04/11/25 03:30 05/11/25 03:29 04/11/25 03:40 75 MLS/HR Lactulose (Constulose 20gm/ 30ml Udcup) 20 gm BID PRN PO CONSTIPATION 04/11/25 03:30 05/11/25 03:29 Morphine Sulfate (morPHINE 4MG SYG) 2 mg Q4H PRN IVP SEVERE PAIN (7-10) 04/11/25 03:30 04/18/25 03:29 Nitroglycerin (Nitrostat) 0.4 mg AD PRN SL CHEST PAIN 04/11/25 01:00 04/11/25 03:10 DC Nitroglycerin (Nitrostat) 0.4 mg PROTOCOL PRN SL CHEST PAIN 04/11/25 03:30 05/11/25 03:29 Ondansetron HCl (zoFRAN 4MG INJ) 4 mg Q6H PRN IV NAUSEA/VOMITING 04/11/25 03:30 05/11/25 03:29 Pantoprazole Sodium (PROTonix 40MG TAB) 40 mg BID PO 04/11/25 21:00 05/11/25 08:59 Pantoprazole Sodium (PROTonix 40MG TAB) 40 mg DAILY PO 04/11/25 09:00 04/11/25 12:08 DC 04/11/25 09:13 40 MG DIAGNOSTICS / RADIOLOGY: [place] [address] IMAGING REPORT Signed PATIENT: MARBELLA PRESSLEY MR#: [id number] : 1955 SEX: F AGE: 69 LOCATION: [facility] ORDER 11 STATUS: REG ER REPORT#: [id number] SERVICE 10 REASON: CHEST PAIN ORDERING PHYSICIAN: BRITTNY PETERSON MD PROCEDURE: CXR1VW - CHEST 1VW EXAM: CR Chest, 1 view CLINICAL HISTORY: Chest pain. COMPARISON: None provided. FINDINGS: The lungs show no infiltrates or other acute findings. No pleural effusion or pneumothorax. The cardiomediastinal silhouette is within normal limits. No acute osseous abnormality. IMPRESSION: No acute cardiopulmonary process is evident. /[place] DICTATED BY: JEANNETTE THORNTON Jr., MD DATE: 04/11/25141 ELECTRONICALLY SIGNED BY: JEANNETTE THORNTON Jr., MD DATE: 04/11/25141 ASSESSMENT: Acute kidney injury, POA Chest pain, POA Abdominal pain, POA Hypertension GERD Anxiety PLAN: Acute kidney injury, POA, resolved. * Labs trends - Na 134>139, K 3.6>4.0, Cl 97>108, BUN-12>11, Cr 1.3>1.0, GFR 44>61. * Ordered urine studies: sodium, creatinine, and osmolality; calculate fractional excretion of sodium (FENa) * Avoid nephrotoxic agents when possible * Renally dose all medications when possible * Will consult Nephrology if the labs keep trending up. * Will order labs tomorrow. Chest pain, POA * Troponin trends 10>9, Chest X-ray unremarkable. EKG showed Sinus rhythm with Probable left atrial enlargement. * Administered aspirin 162 mg orally as a one-time loading dose, then continued aspirin 81 mg orally once daily * Nitroglycerin sublingual 0.4 mg as needed for chest pain every 5 minutes, max 3 doses, hold for systolic blood pressure less than 100 mmHg. * Will Consult cardiology if any elevation in troponin or troponin uptrending, or if patient deemed to need stress test by daytime rouding service. * Hydralazine 10 mg IV every 4 hours for systolic blood pressure greater than 160 mmHg. Abdominal pain, POA * Burning pain in the epigastrium, Aluminium hydroxide 30ml, famotidine 20mg, lidocaine 10ml, ondansetron 4mg was given which relieved her pain. * GI was consulted with H/O GERD and history of hernia, will follow their recommendations. 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 * GI was consulted, will follow their recommendation. * Pantoprazole IV BID was ordered, occult stool blood test was ordered Hypertension * Hydralazine 10 mg IV every 4 hours for systolic blood pressure greater than 160 mmHg. Lisinopril, atenolol were held for now, will monitor vitals and will restart if needed. Anxiety * Will continue sertraline, Bupropion, lorazepam. Supportive measures * DVT prophylaxis, heparin ATTESTATION BY PHYSICIAN I have seen and examined the patient. I reviewed the documentation, medical decision making, and treatment plan as noted by the resident provider above. I agree with the findings and plan of care. CHARAN OLEA MD, SHAJI MD Apr 11, 2025 13:04
--- NOTE | 2025-04-11 15:18 | CONS ---
GASTROENTEROLOGY CONSULTATION NOTE Date of Consultation: Apr 11, 2025 Time of Consultation: 15:09 History of Present Illness: [69-year-old female patient who presented to the emergency room with complaints of epigastric and chest pain. Patient with past medical history for hypertension, tachycardia, anxiety, and GERD. WBC of 6.7. Initial hemoglobin of 10.2 has trended down to 7.9 platelets 235. Chemistries significant for calcium of 7.3, total bilirubin 0.2, direct bilirubin 0.1, AST 44, ALT 27, alkaline phos 105. Lipase 70. Total creatinine kinase of 77 and troponin of 10. Chest x-ray negative for any acute cardiopulmonary process. CT of abdomen and pelvis is pending results. On exam patient is awake, alert, & oriented in no acute distress. Her respirations are unlabored. BBS are clear. Abdomen is soft but tender to epigastric region. Patient reported onset of abdominal pain 1 day ago after she ate hamburger savana.Poc discussed and recommendations for EGD given. Patient stated her last EGD was 1-2 years ago. All her questions were answered to her satisfaction and she agreed to proceed with endoscopic examination. ] Review of Systems: CONSTITUTIONAL: No malaise or change in sensation of wellbeing. ENMT: No rhinorrhea, otorrhea, sinus pain, ear ache. CARDIOVASCULAR: No angina, palpitations, orthopnea or paroxysmal dyspnea. RESPIRATORY: No SOB. GASTROINTESTINAL: No abdominal pain, nausea, vomiting, diarrhea, hematemesis, m francie or change in the patient's habitual bowel movements consistency/number. GENITOURINARY: No dysuria, hematuria or change in bladder continence. MUSCULOSKELETAL: No new muscle pain or decrease in muscular strength. No new joint swelling, redness or tenderness. SKIN: No new rash. Past Medical History: [Hypertension, tachycardia, anxiety, GERD] SOCIAL HISTORY: [Patient smokes five cigarettes daily. Patient denies alcohol use. Patient smokes marijuana daily. Patient denies any other drug use. Patient is typically independent of all her ADLs. Patient denies difficulty paying her bills.] SURGICAL HISTORY: [Tonsillectomy, hernia repair x4, cholecystectomy] ] Coded Allergies: No Known Drug Allergies (Unverified Allergy, Unknown, 11/10/23) Physical Exam: GEN: Awake, alert, oriented in person, time and place, and in no acute distress. HEENT: No rhinorrhea. Oral mucosa is pink, moist and within normal limits. CHEST: Lung auscultation revealed normal breath sounds bilaterally. CARDIAC:Heart sounds are regular. ABD: Soft, not distended but tender to epigastric region. No peritoneal signs on palpation. Normal bowel sounds. Last bm 04/11/25 EXT: No cyanosis or clubbing. No edema. SKIN: Intact. No rashes. NEURO: Alert and oriented to name, place and person.No focal motor deficits. Normal speech.. Vital Sign (Last 24 Hours) 04/11/25 04/11/25 11:38 11:56 Temp 98.1 Pulse 59 Resp 18 B/P (MAP) 121/49 Pulse Ox 99 O2 Delivery Room Air O2 Flow Rate 0 FiO2 21 Laboratory: [ ] Laboratory: Test 04/11/25 11:05 04/11/25 05:15 04/11/25 02:41 04/10/25 23:17 Range/Units Troponin I High Sensitivity 10 4-50 ng/L White Blood Count 6.7 4.8-10.8 K/uL Red Blood Count 2.69 #L 4.00-5.50 MIL/uL Hemoglobin 7.9 #L 12.0-16.0 g/dL Hematocrit 23.5 #L 36-48 % Mean Corpuscular Volume 87.4 79-99 fL Mean Corpuscular Hemoglobin 29.4 27.0-33.0 pg Mean Corpuscular Hemoglobin Concent 33.6 32.0-36.0 g/dL Red Cell Distribution Width 16.1 H 11.0-15.5 % Platelet Count 235 130-400 K/uL Mean Platelet Volume 9.4 7.5-10.5 fL Immature Granulocyte % (Auto) 0.3 0-1 % Neutrophils (%) (Auto) 71.1 40.0-77.0 % Lymphocytes (%) (Auto) 18.6 L 21.0-51.0 % Monocytes (%) (Auto) 9.2 3.0-13.0 % Eosinophils (%) (Auto) 0.6 0.0-8.0 % Basophils (%) (Auto) 0.2 0.0-5.0 % Neutrophils # (Auto) 4.7 1.8-7.7 K/uL Lymphocytes # (Auto) 1.2 1.0-4.8 K/uL Monocytes # (Auto) 0.6 0.1-1.0 K/uL Eosinophils # (Auto) 0.04 0.00-0.70 K/uL Basophils # (Auto) 0.01 0.00-0.20 K/uL Absolute Immature Granulocyte (auto 0.02 0-1 K/uL Nucleated Red Blood Cells 0.0 0.0-0.19 % Sodium Level 139 136-145 mmol/L Potassium Level 4.0 3.5-5.1 mmol/L Chloride Level 108 101-111 mmol/L Carbon Dioxide Level 24 21-32 mmol/L Blood Urea Nitrogen 11 7-18 mg/dL Creatinine 1.0 0.5-1.0 mg/dL Glomerular Filtration Rate Calc 61 >90 mL/min Random Glucose 99 70-105 mg/dL Total Calcium 7.3 L 8.5-10.1 mg/dL Phosphorus Level 3.0 2.5-4.9 mg/dL Magnesium Level 1.90 1.80-2.40 mg/dL Total Bilirubin 0.2 0.2-1.0 mg/dL Direct Bilirubin 0.1 0.0-0.3 mg/dL Aspartate Amino Transf (AST/SGOT) 44 H 10-37 U/L Alanine Aminotransferase (ALT/SGPT) 27 12-78 U/L Alkaline Phosphatase 105 50-136 U/L Total Protein 5.7 L 6.0-8.3 g/dL Albumin 2.6 L 3.5-5.0 g/dL Lipase 70 16-77 U/L Urine Color COLORLESS YELLOW Urine Appearance CLEAR CLEAR Urine pH 5.5 5.0-8.0 Urine Specific [place] 1.004 1.001-1.031 Urine Protein NEGATIVE NEGATIVE mg/dL Urine Glucose (UA) NEGATIVE NEGATIVE mg/dL Urine Ketones NEGATIVE NEGATIVE mg/dL Urine Occult Blood NEGATIVE NEGATIVE Urine Nitrate NEGATIVE NEGATIVE Urine Bilirubin NEGATIVE NEGATIVE mg/dL Urine Urobilinogen 0.2 0.2-1.0 mg/dL Urine Leukocyte Esterase NEGATIVE NEGATIVE Reyes/uL Total Creatine Kinase 77 # 21-232 U/L Current Medications Medications (Trade) Dose Ordered Sig/Aden Route PRN Reason Start Time Stop Time Status Last Admin Dose Admin Acetaminophen (TYLenol 325MG TAB) 650 mg Q6H PRN PO TEMPERATURE GREATER THAN 101.5 04/11/25 03:30 05/11/25 03:29 04/11/25 13:25 650 MG Aspirin (Aspirin 81mg Ec Tab) 81 mg DAILY PO 04/11/25 09:00 05/11/25 08:59 Famotidine (Pepcid 20mg Tab) 20 mg DAILY PO 04/11/25 09:00 04/11/25 03:16 DC Heparin Sodium (Porcine) (HEParin 5,000 UNIT VIAL) 5,000 unit BID SQ 04/11/25 09:00 05/11/25 08:59 Hydralazine HCl (APRESOLine 20MG INJ) 10 mg Q6H PRN IV For:SBP above 160;DBP above 90 04/11/25 03:30 05/11/25 03:29 Lactated Ringer's 1,000 ml @ 75 mls/hr [id number] IV 04/11/25 03:30 05/11/25 03:29 04/11/25 03:40 75 MLS/HR Lactulose (Constulose 20gm/ 30ml Udcup) 20 gm BID PRN PO CONSTIPATION 04/11/25 03:30 05/11/25 03:29 Morphine Sulfate (morPHINE 4MG SYG) 2 mg Q4H PRN IVP SEVERE PAIN (7-10) 04/11/25 03:30 04/18/25 03:29 Nitroglycerin (Nitrostat) 0.4 mg AD PRN SL CHEST PAIN 04/11/25 01:00 04/11/25 03:10 DC Nitroglycerin (Nitrostat) 0.4 mg PROTOCOL PRN SL CHEST PAIN 04/11/25 03:30 05/11/25 03:29 Ondansetron HCl (zoFRAN 4MG INJ) 4 mg Q6H PRN IV NAUSEA/VOMITING 04/11/25 03:30 05/11/25 03:29 Pantoprazole Sodium (PROTonix 40MG TAB) 40 mg BID PO 04/11/25 21:00 05/11/25 08:59 Pantoprazole Sodium (PROTonix 40MG TAB) 40 mg DAILY PO 04/11/25 09:00 04/11/25 12:08 DC 04/11/25 09:13 40 MG Diagnostics / Radiology: [COPY/PASTE HERE IF NO REPORTS PLEASE DELETE SECTION] Assessment: [ Abdominal pain Concern for GI bleed anemia GERD Hypertension] Plan: [ Case discussed with Dr. Cary [clear fluids for dinner Npo after midnight Plan for EGD in am. Information with risks and benefits of procedure given to patient. All his questions were answer and he agreed to proceed with exam. Please call with questions, concerns, and change in clinical status Thank you for allowing us to be part of this patient's care] GILLIAN MEDINA Apr 11, 2025 15:18
[2025-04-12] VITALS (10 sets, daily range): BP systolic 113–166; BP diastolic 48–75; PULSE 59–78; RESP 16–18; TEMP 97.5–98.1
[2025-04-12 04:56] LABS: IMMATURE GRANULOCYTE ABSOLUTE 0.01 K/uL (0-1); NUCLEATED RED BLOOD CELLS 0.0 % (0.0-0.19); PLATELET COUNT (AUTO) 260 K/uL (130-400); RED BLOOD CELL COUNT(AUTO) 3.22 MIL/uL (4.00-5.50); RED CELL DISTRIBUTION WIDTH 16.1 % (11.0-15.5); WHITE BLOOD COUNT (AUTO) 5.4 K/uL (4.8-10.8)
[2025-04-12 05:10] LABS: CREATININE 0.9 mg/dL (0.5-1.0); GLOMERULAR FILTR. RATE CALC 69.0 mL/min (>90); GLUCOSE,RANDOM 87.0 mg/dL (70-105); SODIUM SERUM 143.0 mmol/L (136-145); UREA NITROGEN, BLOOD 8.0 mg/dL (7-18)
--- NOTE | 2025-04-12 09:35 | HMCIMG ---
EXAM: CT Abdomen and Pelvis Without IV contrast CLINICAL HISTORY: Epigastric pain. TECHNIQUE: Axial computed tomography images of the abdomen and pelvis without intravenous contrast. CONTRAST: No IV contrast. COMPARISON: Compared with the previous CT dated 04/29/23 FINDINGS: LUNG BASES: Trace right pleural effusion with overlying atelectasis. LIVER: Unremarkable. GALLBLADDER AND BILE DUCTS: Post-cholecystectomy status with surgical clips in situ. No biliary ductal dilatation is evident. PANCREAS: Unremarkable. SPLEEN: Unremarkable. ADRENAL GLANDS: Unremarkable. KIDNEYS, URETERS, AND BLADDER: The kidneys appear within normal limits. There is no hydronephrosis or hydroureter. No urinary calculi are seen. STOMACH AND BOWEL: Unremarkable appearance of the stomach and bowel. No evidence of bowel obstruction. No evidence suggesting enteritis or colitis. Large amount of stool in the colon. APPENDIX: Normal appendix. PERITONEUM: New Onset minimal free fluid in the right paracolic gutter and adjacent to segment of the liver. No free air. LYMPH NODES: No lymphadenopathy is evident. REPRODUCTIVE: Decrease in size of cystic lesion in the right adnexal region measuring 5.1 x 5.9 cm, previously 6.3 x 7.2 cm. VASCULATURE: No evidence of abdominal aortic aneurysm. Atherocalcific changes in the abdominal aorta and its major branches. BONES AND SOFT TISSUE: No aggressive appearing osseous lesion. No acute osseous pathology is evident. Multilevel degenerative changes in the visualized spine. Postoperative changes in the midline anterior abdominal wall. IMPRESSION: 1. Trace right pleural effusion with overlying atelectasis. 2. New minimal free fluid in the right paracolic gutter and adjacent to liver segment . 3. Decrease in size of right adnexal cystic lesion, now measuring 5.1 x 5.9 cm (previously 6.3 x 7.2 cm). 4. No bowel obstruction or inflammation. Constipation. Normal appendix. 5. No urinary calculi. No hydronephrosis. /[place]
[2025-04-12 09:51] LABS: % IRON SATURATION 17.1 % (22-44); IRON, SERUM 57.0 mcg/dL (50-170)
[2025-04-12] MEDS: LISINOPRIL 20 MG TABLET PO SCH (11:33)
[2025-04-12] MEDS: ATENOLOL 50 MG TABLET PO SCH (11:36)
[2025-04-12] MEDS: Vitamin B Complex/Vit C/Folic Acid PO SCH (11:36)
[2025-04-12] MEDS ORDERED: DOCU100C33 PO (14:18)
[2025-04-12] MEDS ORDERED: FERR325T22 PO (15:09)
--- NOTE | 2025-04-12 16:12 | DS ---
Discharge Summary Hospital Course Summary: This is a case of 69-year-old female with a past medical history of hypertension, anxiety, GERD in tachycardia, who presented to the ER with the complaints of intermittent epigastric pain, burning sensation in pressure-like discomfort radiating to the chest which was aggravated by eating. Her symptoms were not relieved with omeprazole, prompting further evaluation. On admission hemoglobin was 10.2 And BMP reveals sodium 134, chloride 97, creatinine 1.3 indicating acute kidney injury. Troponin levels 10, 9, 10, 1, showing no significant upward trend. EKG revealed Sinus rhythm and probable left atrial enlargement. GI was consulted and an EGD revealed gastritis. Symptoms improved significantly with PPI therapy and docusate. CT abdomen pelvis showed a trace right pleural effusion trace right pleural effusion with overlying atelectasis, New minimal free fluid in the right paracolic gutter and adjacent to liver segment , Decrease in size of right adnexal cystic lesion, now measuring 5.1 x 5.9 cm (previously 6.3 x 7.2 cm), No bowel obstruction or inflammation. C onstipation. Normal appendix, No urinary calculi. No hydronephrosis. Today the patient is seen and examined at the bedside. Hemodynamically stable with blood pressure in the 130s/50s, pulse rate in 60s and oxygen saturation greater than 95% on room air. Hemoglobin stable around 9.5 And BNP normalized. Stool occult blood test and urinalysis were both negative. She is being discha rged in stable condition with instructions to follow up with her primary care, GI and cable worker helper for further evaluation of right adnexal mass. Iron studies showed iron 57, TIBC 333, ferritin 29 and transferrin saturation 17.4% consistent with iron deficiency anemia. She is prescribed ferrous sulfate to be taking every other day and docusate p.r.n. for constipation. The patient was educated on possible side effects of iron supplements such as constipation and GI upset and advised to start it after her gastric symptoms have fully resolved. Information Services Assistant(s): GI Consult Dr.Sandeep Lavonne Delgadillo Assessment: [ Abdominal pain Concern for GI bleed anemia GERD Hypertension] Plan: [ Case discussed with Dr. Cary [clear fluids for dinner Npo after midnight Plan for EGD in am. Information with risks and benefits of procedure given to patient. All his questions were answer and he agreed to proceed with exam. Please call with questions, concerns, and change in clinical status Thank you for allowing us to be part of this patient's care RECOMMENDATIONS POST EGD CONTINUE PRESENT MEDICATIONS RETURN TO OFFICE IN 1 WEEK AWAIT PATHOLOGY RESULTS Procedure(s): PATIENT: MARBELLA LAKE MR#: [id number] : 1955 SEX: F AGE: 69 LOCATION: [facility] ORDER 120 STATUS: ADM IN REPORT#: [id number] SERVICE 04 REASON: Epigastric pain. ORDERING PHYSICIAN: SONY FREEMAN MD PROCEDURE: ABD PEL WO - CT ABDOMEN/PELVIS W/O CONTRAST EXAM: CT Abdomen and Pelvis Without IV contrast CLINICAL HISTORY: Epigastric pain. TECHNIQUE: Axial computed tomography images of the abdomen and pelvis without intravenous contrast. CONTRAST: No IV contrast. COMPARISON: Compared with the previous CT dated 04/29/23 FINDINGS: LUNG BASES: Trace right pleural effusion with overlying atelectasis. LIVER: Unremarkable. GALLBLADDER AND BILE DUCTS: Post-cholecystectomy status with surgical clips in situ. No biliary ductal dilatation is evident. PANCREAS: Unremarkable. SPLEEN: Unremarkable. ADRENAL GLANDS: Unremarkable. KIDNEYS, URETERS, AND BLADDER: The kidneys appear within normal limits. There is no hydronephrosis or hydroureter. No urinary calculi are seen. STOMACH AND BOWEL: Unremarkable appearance of the stomach and bowel. No evidence of bowel obstruction. No evidence suggesting enteritis or colitis. Large amount of stool in the colon. APPENDIX: Normal appendix. PERITONEUM: New Onset minimal free fluid in the right paracolic gutter and adjacent to segment of the liver. No free air. LYMPH NODES: No lymphadenopathy is evident. REPRODUCTIVE: Decrease in size of cystic lesion in the right adnexal region measuring 5.1 x 5.9 cm, previously 6.3 x 7.2 cm. VASCULATURE: No evidence of abdominal aortic aneurysm. Atherocalcific changes in the abdominal aorta and its major branches. BONES AND SOFT TISSUE: No aggressive appearing osseous lesion. No acute osseous pathology is evident. Multilevel degenerative changes in the visualized spine. Postoperative changes in the midline anterior abdominal wall. IMPRESSION: 1. Trace right pleural effusion with overlying atelectasis. 2. New minimal free fluid in the right paracolic gutter and adjacent to liver segment . 3. Decrease in size of right adnexal cystic lesion, now measuring 5.1 x 5.9 cm (previously 6.3 x 7.2 cm). 4. No bowel obstruction or inflammation. Constipation. Normal appendix. 5. No urinary calculi. No hydronephrosis. /[place] DICTATED BY: EDWARDO ANSARI MD DATE: 04/12/251034 ELECTRONICALLY SIGNED BY: EDWARDO ANSARI MD DATE: 04/12/251034 PATIENT: MARBELLA LAKE MR#: [id number] : 1955 SEX: F AGE: 69 LOCATION: [facility] ORDER 11 STATUS: [facility] REPORT#: [id number] SERVICE 10 REASON: CHEST PAIN ORDERING PHYSICIAN: BRITTNY PETERSON MD PROCEDURE: CXR1VW - CHEST 1VW EXAM: CR Chest, 1 view CLINICAL HISTORY: Chest pain. COMPARISON: None provided. FINDINGS: The lungs show no infiltrates or other acute findings. No pleural effusion or pneumothorax. The cardiomediastinal silhouette is within normal limits. No acute osseous abnormality. IMPRESSION: No acute cardiopulmonary process is evident. /[place] DICTATED BY: JEANNETTE THORNTON Jr., MD DATE: 04/11/25141 ELECTRONICALLY SIGNED BY: JEANNETTE THORNTON Jr., MD DATE: 04/11/25141 EGD FINDINGS, DONE ON 04/12/2025 NORMAL ESOPHAGUS MUCOSAL CHANGES SUSPICION FOR GASTRITIS, BIOPSIED NORMAL EXAMINED DUODENUM Assessment/Plan: ASSESSMENT: Acute kidney injury, POA, resolved Gastritis, as per EGD Anemia, Iron deficiency, POA Constipation, POA Chest pain, POA , most probably due to GI causes Abdominal pain, POA, resolving [due to gastritis and Constipation] Hypertension GERD Anxiety Tachycardia [on Atenolol and Diltiazem at home] History of gastroparesis PLAN: ADMISSION DATE : 04/11/2025 DISCHARGE DATE : 04/12/2025 DISPOSITION : Home CONDITION : Stable Information Services Assistant(s) : GI Consult Dr.Sandeep Lavonne Delgadillo FOLLOW UP APPOINTMENTS : Follow up with PCP, GI consult within 1 week and OB Triage Rn PROCEDURES : EGD on 04/12/2025 IMAGING (s) : Chest x-ray, CT abdomen/pelvis MICROBIOLOGY : None ACTIVITY : ad adrian HOME MEDICATIONS : Continued NEW MEDICATIONS : Docusate p.r.n. for constipation, ferrous sulfate 325 mg every other day for 30 days TEACHING : The patient was instructed to present to the nearest Emergency Department or call 911 should their symptoms return or worsen. Discharge Instructions: Follow up with PCP within 2-3 days Follow up with GI cosult in 1 week Continue taking your omeprazole for Gastritis Continue home medications Start Docusate 100 mg PRN for constipation Start Iron sulphate tabs every other day once constipation resolves. Your CT abd/pelvis showed right adnexal cystic lesion, measuring 5.1 x 5.9 cm [which has decreased in size when compared to CT done in 2022], Please follow up with Triage Rn outpatient for further workup Eat small, frequent meals Monitor for symptoms like severe or worsening abdominal pain, persistent vomiting, fever, chills, abdominal distension and seek immediate medical attention in such scenario Home Medications: Active Scripts Ferrous Sulfate (Ferrous Sulfate) 325 Mg (65 Mg Iron) Tablet, 325 MG PO QMOWEFR for 30 Days, #30 TAB Prov:JACKSON ECHAVARRIA MD 04/12/25 Docusate Sodium (Docusate Sodium) 100 Mg Capsule, 1 CAP PO BID PRN for constipation for 7 Days, #14 CAP 0 Refills Prov:JACKSON ECHAVARRIA MD 04/12/25 Reported Medications Folic Acid/Vitamin B Comp W-C (Lorna-Gina Tablet) 0.8 Mg Tablet, 1 TAB PO DAILY for 30 Days, #30 TAB 0 Refills 04/11/25 Lorazepam (Lorazepam) 2 Mg/Ml Cartridge, 1 MG PO DAILY PRN for ANXIETY/AGITATION, 0 Refills 04/11/25 Sertraline HCl (Sertraline HCl) 100 Mg Tablet, 150 MG PO HS, TAB 04/11/25 Atenolol (Atenolol) 50 Mg Tablet, 50 MG PO DAILY, TAB 04/11/25 Bupropion HCl (Bupropion Xl) 150 Mg Tab.er.24h, 150 MG PO da, TAB 04/11/25 Clonidine HCl (Clonidine HCl) 0.1 Mg Tablet, 0.1 MG PO DAILY PRN for IF SBP GREATER THAN 150, TAB 04/11/25 Diltiazem HCl (Diltiazem HCl) 120 Mg Tablet, 120 MG PO BID, TAB 04/11/25 Omeprazole (Omeprazole) 40 Mg Capsule.dr, 40 MG PO DAILY, CAP 11/10/23 Atorvastatin Calcium (LIPITOR) 20 Mg Tab, 20 MG PO HS, TAB 11/10/23 Lisinopril (Lisinopril) 20 Mg Tablet, 20 MG PO DAILY, TAB 11/10/23 Discontinued Reported Medications Bacillus Coagulans/Inulin (Probiotic Formula Capsule) 1 Billion Cell-250 Mg Capsule, 1 EACH PO DAILY, CAP 11/10/23 Lorazepam (Ativan) 0.5 Mg Tablet, 0.5 MG PO AD PRN for ANXIETY, TAB 11/10/23 Atenolol (Atenolol) 50 Mg Tablet, 50 MG PO DAILY, TAB 11/10/23 Sertraline HCl (Sertraline HCl) 50 Mg Tablet, 50 MG PO BID, TAB 11/10/23 Diltiazem HCl (Diltiazem ER) 120 Mg Cap.er.12h, 120 MG PO BID, CAPSULE. 11/10/23 Milk Thistle (Milk Thistle) 150 Mg Capsule, 150 MG PO DAILY, CAP 11/10/23 Discontinued Scripts Methocarbamol (Robaxin) 750 Mg Tab, 500 MG PO TID, #12 TAB 0 Refills Prov:MAL TINSLEY MD 11/15/23 Gabapentin (Gabapentin) 100 Mg Capsule, 100 MG PO TID, #15 CAP 0 Refills Prov:AML TINSLEY MD 11/15/23 Docusate Sodium (Colace) 100 Mg Capsule, 100 MG PO BID, #30 CAP 0 Refills Prov:MAL TINSLEY MD 11/15/23 Tramadol Hcl (Tramadol HCl) 50 Mg Tablet, 50 MG PO Q6HPRN PRN for PAIN, #28 TAB 0 Refills Prov:MAL TINSLEY MD 11/15/23 Time spent arranging discharge: 31-60 minutes ATTESTATION BY PHYSICIAN I have seen and examined the patient. I reviewed the documentation, medical decision making, and treatment plan as noted by the resident physician above. I agree with the findings and plan of care. CHARAN OLEA MD, PRIYANKA MD Apr 12, 2025 16:12
--- NOTE | 2025-04-12 16:45 | NUR ---
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
[2025-04-13] MEDS ORDERED: ATENOLOL 50 MG TABLET PO SCH (09:00)
[2025-04-13] MEDS ORDERED: LISINOPRIL 20 MG TABLET PO SCH (09:00)
== END 2025-04-12 16:45 | disposition home or self-care (01) ==
LOC: EDH 23:03 → EDHIP 04-11 02:35 → INTOOBSV 04-11 02:35 → UNDOADMOB 04-11 02:35 → 4AH 04-11 04:20 → EDHIP 04-11 04:20 → 4AH 04-12 08:00 → EDHIP 04-12 08:00
PROVIDERS: ADMIT Internal Medicine; ATTEND Internal Medicine
DX: K92.2 Gastrointestinal hemorrhage, unspecified (principal); R07.89 Other chest pain; K21.9 Gastro-esophageal reflux disease without esophagitis; N17.9 Acute kidney failure, unspecified; E11.43 Type 2 diabetes mellitus with diabetic autonomic (poly)neuropathy; D50.9 Iron deficiency anemia, unspecified; F17.210 Nicotine dependence, cigarettes, uncomplicated; I10 Essential (primary) hypertension; K59.00 Constipation, unspecified; Z79.82 Long term (current) use of aspirin; Z79.899 Other long term (current) drug therapy; Z98.890 Other specified postprocedural states
CPT/HCPCS: 96375 ×2; 99285; 82550; 84484 ×4; 80048 ×3; 85025 ×3; 36415 ×3; 71045; 96374; 93005; 96372 ×2; 80076; 83735; 84100; 83690; 82270; 81003; 74176; 82728; 82607; 88305; 88312; 43239; J2405; J2270; J1644 ×2; J1885; G0378 ×9; J2704; A4620; A4215 ×2; A4223; A4222; J7030; A4606; J3490